=== PATIENT | female | born 1945 | race Caucasian/White ===

== ENCOUNTER → 2016-10-15 | Outpatient (CLI) | payer MEDICARE, OTHER ==
[~2016-10-15] MED LIST: ADVAIR HFA 115-28 GM INH; ALPRAZOLAM0.5 MG PO; ARMOUR THYROID120 MG PO; CALCITRIOL0.25 MCG PO; CALCIUM500 M1 PO; FARXIGA10 MG PO; FUROSEMIDE20 MG PO; IPRAT-ALBUT 0.5-3 ML INH; METOPROLOL SUC100 MG PO; NOVOLOG MI100 UNIT/2 SC; TRIBENZOR 40-11 EAC1 PO; VENTOLIN/PROVE0.5 ML INH
[2016-10-15 11:10] LABS: HEMOGLOBIN 13.6 gm/dl (12.3-15.3); RED BLOOD COUNT 4.94 M/UL (4.00-5.10); WHITE BLOOD COUNT 7.1 K/UL (4.5-11.0)
[2016-10-15 11:28] LABS: BUN/CREATININE RATIO 24 (0-10)
== END ==
LOC: OPSV2 10:00
PROVIDERS: Orthopaedic Surgery
DX: Z01.812 Encounter for preprocedural laboratory examination (principal); Z01.810 Encounter for preprocedural cardiovascular examination; G56.01 Carpal tunnel syndrome, right upper limb; E11.9 Type 2 diabetes mellitus without complications; I10 Essential (primary) hypertension; Z88.5 Allergy status to narcotic agent; Z88.3 Allergy status to other anti-infective agents; Z88.4 Allergy status to anesthetic agent; Z88.0 Allergy status to penicillin; Z88.2 Allergy status to sulfonamides
CPT/HCPCS: 36415; 80048; 83036; 85027; 93005

== ENCOUNTER → 2016-10-28 | Day surgery (SDC) | payer MEDICARE, OTHER ==
[~2016-10-28] VITALS: Ht 172.7 cm; Wt 105.2 kg
== END | disposition home or self-care (01) ==
LOC: OR 09:01
PROVIDERS: Orthopaedic Surgery
PROC: 01N50ZZ Release Median Nerve, Open Approach (ICD-10-PCS; principal; 2016-10-28 10:15)
DX: G56.03 Carpal tunnel syndrome, bilateral upper limbs (principal); E07.9 Disorder of thyroid, unspecified; I10 Essential (primary) hypertension; E11.9 Type 2 diabetes mellitus without complications; M51.36 Other intervertebral disc degeneration, lumbar region; J45.909 Unspecified asthma, uncomplicated; M19.90 Unspecified osteoarthritis, unspecified site; M81.0 Age-related osteoporosis without current pathological fracture; K21.9 Gastro-esophageal reflux disease without esophagitis; G89.29 Other chronic pain; E89.0 Postprocedural hypothyroidism; Z90.49 Acquired absence of other specified parts of digestive tract; Z88.6 Allergy status to analgesic agent; Z88.1 Allergy status to other antibiotic agents; Z88.8 Allergy status to other drugs, medicaments and biological substances; Z79.899 Other long term (current) drug therapy; Z87.01 Personal history of pneumonia (recurrent); Z99.89 Dependence on other enabling machines and devices; Z87.19 Personal history of other diseases of the digestive system; Z86.69 Personal history of other diseases of the nervous system and sense organs
CPT/HCPCS: 82962; J0690; J1200; J1815; J2250; J2405; J3010; J7030; J7120

== ENCOUNTER → 2022-02-25 | Outpatient (CLI) | payer MEDICARE, OTHER ==
[~2022-02-25] MED LIST changes: +ASPIR 8181 MG PO; +IMDUR ER TAB 3030 MG PO; +MECLIZINE HCL12.5 MG PO; +NOVOLIN 70100 UNIT/1 SQ; +PRAVACHOL20 MG PO; +TRADJENTA5 MG PO
== END ==
LOC: SLEEP 13:19
DX: G47.33 Obstructive sleep apnea (adult) (pediatric) (principal)
CPT/HCPCS: 95810